=== PATIENT | female | born 1955 | race African-American/Black ===

== ENCOUNTER → 2017-06-16 | Outpatient (CLI) | payer OTHER, MEDICAID ==
[~2017-06-16] MED LIST: IOPAMIDOL (ISOVUE 370) 100 ML BTL IV ONE; LIDOCAINE 1% 300 MG/30 ML SDV ONE
== END ==
LOC: FIMAGING 10:44
PROVIDERS: ATTEND Radiology Diagnostic Radiology
PROC: 3E0U3HZ Introduction of Radioactive Substance into Joints, Percutaneous Approach (ICD-10-PCS; principal; 2017-06-16)
DX: M75.101 Unspecified rotator cuff tear or rupture of right shoulder, not specified as traumatic (principal)
CPT/HCPCS: 23350; 73040; 73201; Q9967

== ENCOUNTER 2017-07-27 05:39 | Day surgery (SDC) | payer OTHER, MEDICAID ==
[2017-07-27] MEDS ORDERED: LR 1,000 ML IV ONE (06:35)
--- NOTE | 2017-07-27 06:44 | PDHPUP ---
History & Physical Update H&P update statement: This history and physical update is based on an assessment of the patient which was completed after admission or registration (within 24 hours), but prior to the surgery/procedure. RRR CTAB H&P update: no change in patient's condition since H&P completed
[2017-07-27] MEDS ORDERED: ceFAZolin 2 GM/DEXTROSE 100 ML IV ONE (06:45)
[2017-07-27] MEDS ORDERED: CLINDAMYCIN 900 MG/DEXTROSE 50 ML IV ONE (06:50)
[2017-07-27] MEDS ORDERED: MIDAZOLAM 2 MG/2 ML VIAL IVP ONE (06:57)
[2017-07-27] MEDS ORDERED: BUPIVACAINE 0.5% 30 ML SDV ONE (06:59)
[2017-07-27] MEDS ORDERED: EPINEPHrine 30 MG/30 ML MDV (0.1 MG/0.1 ML) ONE (06:59)
[2017-07-27] MEDS ORDERED: LIDOCAINE 1% 300 MG/30 ML SDV ONE (06:59)
--- NOTE | 2017-07-27 06:59 | PDANEPAE ---
ANE History of Present Illness Right shoulder arthroscopic surgery ANE Past Medical History - Cardiovascular History Hx Hypertension: No Hx Arrhythmias: No Hx Chest Pain: No Hx Coronary Artery / Peripheral Vascular Disease: No Hx CHF / Valvular Disease: No Hx Palpitations: No - Pulmonary History Hx COPD: No Hx Asthma/Reactive Airway Disease: Yes Hx Recent Upper Respiratory Infection: No Hx Oxygen in Use at Home: No Hx Sleep Apnea: Yes Sleep Apnea Screening Result - Last Documented: Positive Pulmonary History Comment: CPAP - Neurologic History Hx Cerebrovascular Accident: No Hx Seizures: No Hx Dementia: No - Endocrine History Hx Diabetes: No Hypothyroid: No Obesity: moderate, severe - Renal History Hx Renal Disorders: No - Liver History Hx Hepatic Disorders: No - Neurological & Psychiatric Hx Hx Neurological and Psychiatric Disorders: Yes Neurological / Psychiatric History Comment: OCCIPITAL NERVE BLOCK/damage from injury. anxiety. SPINAL STIMULATOR,PT TO BRING IN CONTROLLER - Cancer History Hx Cancer: No - Congenital Disorder History Hx Congenital Disorders: Yes Congenital History Comment: depression,colon cancer - GI History Hx Gastrointestinal Disorders: Yes Gastrointestinal History Comment: diverticulitis - Other Health History Other Health History: none - Chronic Pain History Chronic Pain: Yes (CERVICAL AND LUMBARDDD BOTH KNEES) - Surgical History Prior Surgeries: 2016 spinal stimulator. colonoscopy ANE Review of Systems Review of Systems: - Exercise capacity METS (RN): 4 METS ANE Patient History - Allergies Allergies/Adverse Reactions: adhesive tape Allergy (Verified 07/20/17 17:46) Rash latex Allergy (Verified 07/20/17 17:46) Rash - Home Medications Home Medications: Denis-Mag Complex 300-150 mg Tab 07/20/17 [Last Taken Unknown] Cholecalciferol (Vitamin D3) 07/20/17 [Last Taken Unknown] Herbals/Supplements -Info Only 07/20/17 [Last Taken Unknown] Levothyroxine Sodium 07/20/17 [Last Taken Unknown] Liothyronine Sodium 07/20/17 [Last Taken Unknown] Naproxen 07/20/17 [Last Taken Unknown] Naproxen/Esomeprazole Mag 07/20/17 [Last Taken Unknown] Tizanidine HCl 07/20/17 [Last Taken Unknown] Tumeric 07/20/17 [Last Taken Unknown] Tylenol #3 (*) 07/20/17 [Last Taken Unknown] Vit B6 07/20/17 [Last Taken Unknown] Vitamin B12 (*) 07/20/17 [Last Taken Unknown] - NPO status NPO Since - Liquids (Date): 07/26/17 NPO Since - Liquids (Time): 10:00 NPO Since - Solids (Date): 07/26/17 NPO Since - Solids (Time): 10:00 - Smoking Hx Smoking Status: Former smoker - Family Anes Hx Family Hx Anesthesia Complications: none ANE Labs/Vital Signs - Vital Signs Height: 170.18 cm Weight: 127.006 kg ANE Physical Exam - Airway Neck exam: FROM, decreased ROM Mallampati Score: Class 2 ANE Anesthesia Plan Anesthesia Plan: general endotracheal anesthesia Regional Anesthesia: interscalene BP NB
[2017-07-27] MEDS ORDERED: fentaNYL 250 MCG/5 ML INJ ONE (07:10)
[2017-07-27] MEDS ORDERED: PROPOFOL/EMULSION 500 MG/50 ML BOTTLE IV ONE ×2 (07:10)
[2017-07-27] MEDS ORDERED: fentaNYL 100 MCG/2 ML INJ ONE ×2 (07:48)
[2017-07-27] MEDS ORDERED: ROCURONIUM 50 MG/5 ML VIAL ONE (07:58)
[2017-07-27] MEDS ORDERED: DEXAMETHASONE 4 MG/ML VIAL ONE ×3 (07:58→09:35)
[2017-07-27] MEDS ORDERED: LIDOCAINE 2% 5 ML SDV ONE (07:58)
[2017-07-27] MEDS ORDERED: PHENYLEPHRINE HCL 100 MCG/ML SYR ONE (08:47)
[2017-07-27] MEDS ORDERED: ONDANSETRON 4 MG/2 ML VIAL ONE ×2 (09:36)
--- NOTE | 2017-07-27 09:53 | POSTOPPROG ---
Post Op Note Date of Operation: 07/27/17 Surgeon: Tanner Condon Slide Forming Machine Tender: Maryann Foster PA-C Anesthesiologist: Michael Anesthesia: GET(General Endotracheal) Pre-op Diagnosis: Right shoulder rotator cuff tear Post-op Diagnosis: Right shoulder rotator cuff tear Indication: Right shoulder rotator cuff tear Procedure: Right shoulder arthroscopy with labral debridement, RCR, SAD, DCE Inf/Abcess present in the surg proc area at time of surgery?: No EBL: Minimal
[2017-07-27] MEDS ORDERED: HYDROmorphONE/DILAUDID 1 MG/ML INJ IVP PRN (10:30)
[2017-07-27] MEDS ORDERED: fentaNYL 100 MCG/2 ML INJ IVP PRN (10:30)
[2017-07-27] MEDS ORDERED: ACETAMINOPHEN 500 MG TAB PO PRN (10:30)
[2017-07-27] MEDS ORDERED: PROMETHAZINE HCL 25 MG/ML INJ IVP PRN (10:30)
[2017-07-27] MEDS ORDERED: HYDROCODONE/APAP 5/325 TAB PO PRN (10:30)
[2017-07-27] MEDS ORDERED: NALOXONE HCL 0.4 MG/ML INJ IVP PRN (10:30)
[2017-07-27] MEDS ORDERED: oxyCODONE IR 5 MG TAB PO PRN (10:30)
[2017-07-27] MEDS ORDERED: ONDANSETRON 4 MG/2 ML VIAL IVP PRN (10:30)
--- NOTE | 2017-07-27 10:32 | POSTANESTH ---
Post Anesthetic Evaluation Cardiovascular Status: Normal, Stable Respiratory Status: Normal, Stable Level of Consciousness/Mental Status: Can Participate in Eval Pain Control: Adequate, Prn Tx Ordered Nausea/Vomiting Control: Adequate, Prn Tx Ordered Complications Possibly Related to Anesthesia: None Noted (Pain controlled by block. Plan DC home)
[2017-07-27 12:51] VITALS: BP 134/83
--- NOTE | 2017-07-28 00:19 | GOP ---
[f rep st] OPERATIVE REPORT PATIENT: LYSSA RODRIGUEZ DATE OF SERVICE: 07/27/17 PATIENT DATE OF : 1955 SURGEON: Tanner Condon M.D. LENS CLEANER: Maryann Foster PA-C Mrs. Mcpherson assistance was medically necessary for patient positioning and the retraction of vital structures. ANESTHESIA: General / regional anesthesia PRE-OPERATIVE DIAGNOSES: Right shoulder subacromial impingement (ICD-10 code M75.51 right shoulder bursitis) Right shoulder acromioclavicular joint arthritis (ICD-10 code M13.111 right shoulder acromioclavicular joint arthritis) Right shoulder SLAP tear (ICD-10 code S43.431D right shoulder superior glenoid labrum lesion) Right shoulder biceps tendinitis (ICD-10 code M75.21 right shoulder bicipital tendinitis) Right shoulder rotator cuff tear (ICD-10 code S46.001A right shoulder rotator cuff tear) POST-OPERATIVE DIAGNOSES: Right shoulder subacromial impingement (ICD-10 code M75.51 right shoulder bursitis) Right shoulder acromioclavicular joint arthritis (ICD-10 code M13.111 right shoulder acromioclavicular joint arthritis) Right shoulder SLAP tear (ICD-10 code S43.431D right shoulder superior glenoid labrum lesion) Right shoulder biceps tendinitis (ICD-10 code M75.21 right shoulder bicipital tendinitis) Right shoulder rotator cuff tear (ICD-10 code S46.001A right shoulder rotator cuff tear) OPERATIVE PROCEDURES: CPT code 76542 Right shoulder arthroscopic subacromial decompression CPT code 80552 Right shoulder arthroscopic debridement, extensive CPT code 53197 Right shoulder arthroscopic distal clavicle excision CPT code 31798 Right shoulder arthroscopic rotator cuff repair CPT code 00748 Right shoulder long head of biceps tenotomy EBL: 4cc COMPLICATIONS: None IMPLANTS: Two Arthrex 5.5mm bio-composite corkscrew anchors triple loaded with # 2 Fiber Wire and two Arthrex 4.75 mm bio-composite swivel lock anchors BRIEF CLINICAL NOTE: This is a very pleasant 61 year old female with a significant history for right shoulder subacromial impingement, acromioclavicular joint arthritis, degenerative labral tears, long head of biceps tendinitis and a full thickness rotator cuff tear. As such, I have discussed the risks, benefits, alternatives, and complications associated with both non-operative (specifically, observation, PT, activity modifications, NSAIDs, injection) and operative (specifically, right shoulder arthroscopy with subacromial decompression, distal clavicle excision, labral debridement, long head of biceps tenotomy and/or tenodesis, and rotator cuff repair) forms of treatment. The patient fully understands the risks, benefits, alternatives, and complications associated with both forms of treatment and wishes to proceed with operative intervention as outlined above. The patient has signed the informed consent form for surgery. OPERATIVE NOTE: On the day of surgery, all of the patients questions were answered. The patient was then transferred from the pre-operative area into the operating room and a formal, Time-Out procedure was performed. The patient was identified by name, medical record number, social security number, and date of . In addition, the patients right upper extremity was identified as the correct portion of the patients body for surgery with the patients right shoulder being identified as the correct portion of that extremity for surgery. The anesthesia team administered pre-operative antibiotics for prophylaxis. The patient was then transferred to the operating room table and placed in the beach chair position while padding all bony prominences. The extremity was then prepped and draped in the normal sterile fashion. A sterile marking pen was then utilized to dalila out standard posterior, lateral , and anterior arthroscopic portal incisions. An 18-gauge spinal needle was utilized to localize the glenohumeral joint and the joint was insufflated with 60cc of a 50:50 mixture of 1% lidocaine with 1:200,000 components of epinephrine and normal saline. Following this, an 11-blade was utilized to make the posterior portal incision. The blunt obturator and arthroscopic cannula were then advanced through the posterior portal incision into the glenohumeral joint. The arthroscope was inserted and the shoulder was brought into external rotation. An 18-gauge spinal needle was utilized to create the anterior portal with outside-in technique. A medium-sized Arthrex corckscrew cannula was then inserted through the anterior portal incision. A diagnostic arthroscopy was performed in the glenohumeral space. The following structures were identified and examined with the following findings: Glenohumeral diagnostic arthroscopy Glenoid: mild degenerative changes Humeral head: mild degenerative changes Glenoid labrum Anterior labrum: degenerative fraying Superior labrum: degenerative fraying Posterior labrum: intact Inferior labrum: intact Biceps tendon: high-grade partial tearing Glenohumeral ligaments: SGHL: intact MGHL: intact AIGHL: intact PIGHL: intact Undersurface of rotator cuff: Subscapularis: intact Supraspinatus: full thickness tear Infraspinatus: intact The 4.0mm aggressive cutter was then inserted through the anterior portal and an extensive debridement was performed within the glenohumeral joint. The cautery wand was inserted through the anterior portal and the long head of the biceps tendon was released off of the supraglenoid tubercle (long head of biceps tenotomy). The arthroscope was then removed from the glenohumeral joint and the posterior cannula was re-directed into the subacromial space. The arthroscope was then re -inserted into the posterior cannula. An 18-gauge spinal needle was used to create a straight lateral portal with outside-in technique. A large Arthrex corkscrew cannula was inserted through the lateral portal incision. The 4.0mm aggressive cutter and the cautery wand were passed through the lateral portal to excise the subacromial-subdeltoid bursa. A diagnostic arthroscopy was performed in the subacromial space. The following structures were identified and examined with the following findings: Subacromial space diagnostic arthroscopy Subacromial / subdeltoid bursa: hypertrophic and inflamed Acromion: undersurface spurring Coracoacromial ligament: intact Acromioclavicular joint: arthritis and undersurface spurring Bursal surface of rotator cuff muscles: Supraspinatus: full thickness tear Infraspinatus: intact The 4.0mm barrel arthur was utilized to perform both an acromioplasty as well as an arthroscopic distal clavicle excision. The torn edge of the rotator cuff was then thoroughly debrided with the 4.0mm aggressive cutter. The rotator cuff footprint was also debrided with both the aggressive cutter and the 4.0mm barrel arthur. The anterior medial row anchor site was localized with outside-in technique utilizing an 18-gauge spinal needle. A 2-mm incision was made overlying anterior medial row anchor site and the 4.5mm punch was advanced through the soft tissue and impacted into the bone of the greater tuberosity. The punch was removed and an Arthrex 5.5mm bio-composite corkscrew anchor (triple loaded with #2 Fiber Wire) was inserted and manually checked for pull-out strength. The same procedure was then repeated for the placement of a second anchor of the same kind along the posterior aspect of the medial row. The suture strands from both medial row anchors were then passed through the torn edge of the rotator cuff moving from anterior to posterior. Each suture pair was then sequentially tightened and tied moving from anterior to posterior. Next, several of the anterior and posterior anchor suture strands were shuttled out of the lateral portal and passed through the tip of an Arthrex 4.75mm bio-composite Swivel Lock anchor. The 4.5mm punch was then utilized to create a car pilot hole for the anchor along the lateral aspect of the anterior greater tuberosity. The Swivel Lock anchor tip was then inserted into the car pilot hole and each suture strand was sequentially tightened. The Swivel lock anchor was then fully inserted. The central suture strand was removed from the anchor and the remaining suture strands were cut. The same procedure was then repeated with a second 4.75mm Swivel lock anchor which was inserted along the lateral aspect of the posterior greater tuberosity. Next, the arm was brought through internal rotation, external rotation, adduction and abduction. All motions demonstrated an excellent repair of the cuff to the footprint. Meticulous hemostasis was obtained in the subacromial space with the cautery wand. Arthroscopic pictures were taken and saved. The arthroscope and all instruments were then removed from the joint. All wounds were copiously irrigated with sterile normal saline. The subcutaneous plane was re-approximated with 3-0 vicryl sutures and the skin was re-approximated with 4-0 moncryl. The skin was cleaned with sterile normal saline and dried. Dermabond was applied to all of the incisions followed by a Xeroform gauze dressing, a dry sterile dressing, and an occlusive Tegaderm dressing. The arm was then placed into a sling and swathe. The patient was reversed from anesthesia and transferred from the operating room table onto the post-operative gurney and transferred from the operating room to the PACU in stable condition. POST-OPERATIVE PLAN: The patient will remain in the current dressing and sling for the next 2 weeks. The patient will follow-up in 2 weeks for a wound check and initiation of gentle forearm, elbow, and shoulder ROM exercises. /[id number]/MODL MTDD
== END 2017-07-27 12:51 | disposition home or self-care (01) ==
LOC: FSGY 05:39
PROVIDERS: ATTEND Orthopaedic Surgery Hand Surgery
PROC: 0RNG4ZZ Release Right Acromioclavicular Joint, Percutaneous Endoscopic Approach (ICD-10-PCS; principal; 2017-07-27 07:15)
PROC: 0PB94ZZ Excision of Right Clavicle, Percutaneous Endoscopic Approach (ICD-10-PCS; principal; 2017-07-27 07:15)
PROC: 0L8 Tendons, Division (ICD-10-PCS; principal; 2017-07-27 07:15)
PROC: 0LQ14ZZ Repair Right Shoulder Tendon, Percutaneous Endoscopic Approach (ICD-10-PCS; principal; 2017-07-27 07:15)
DX: S43.431D Superior glenoid labrum lesion of right shoulder, subsequent encounter (principal); S46.001D Unspecified injury of muscle(s) and tendon(s) of the rotator cuff of right shoulder, subsequent encounter; M75.51 Bursitis of right shoulder; M13.111 Monoarthritis, not elsewhere classified, right shoulder; M75.21 Bicipital tendinitis, right shoulder; F41.8 Other specified anxiety disorders; R91.1 Solitary pulmonary nodule; W19.XXXD Unspecified fall, subsequent encounter; Z91.040 Latex allergy status; Z88.0 Allergy status to penicillin; Z96.89 Presence of other specified functional implants
CPT/HCPCS: C1713; J0171; J1100; J2250; J2370; J2405; J2704; J3010